=== PATIENT | male | born 1960 | race Two or more races ===

== ENCOUNTER → 2024-12-07 | Day surgery (SDC) | payer MEDICAID ==
[~2024-12-07] VITALS: Ht 167.6 cm; Wt 88.9 kg
[~2024-12-07] MED LIST: ACETAMINOPHEN 1000MG/100ML 100 ML IV ONE; ATEN50TA PO; ATOR40TA70 PO; BUPIVACAINE HCL/PF 0.5% (5MG/ML) 10ML ONE; DEXAMETHASONE 4MG/ML 1ML VIAL ONE; FAMOTIDINE 20MG/2ML VIAL IV ONE; FENTANYL CITRATE/PF 50MCG/ML 2ML VIAL ONE; GABA-1180 PO; HYDRALAZINE 20MG/ML VIAL IV PRN; HYDROMORPHONE HCL/PF 1MG/ML INJ IV PRN; LABETALOL 5MG/ML 4ML INJ IV PRN; LIDOCAINE HCL 1% 10 MG/ML 10ML VIAL ONE; METF-416 PO; OMEP40CA20 PO; ONDANSETRON HCL 4MG/2ML INJ IV PRN; ONDANSETRON HCL 4MG/2ML INJ ONE; PROPOFOL 200MG/20ML VIAL IV ONE; ROCURONIUM BROMIDE 10MG/ML VIAL 5ML IV ONE; SKIN ADHESIVE 0.7 GM EA TOP ONE; SUGAMMADEX SODIUM 200MG/2ML VIAL IV ONE; TRAM50TA3 PO
[2024-12-07] MEDS: SODIUM CHLORIDE 0.9% 1,000 ML IV SCH (07:01)
[2024-12-07] MEDS: FENTANYL CITRATE/PF 50MCG/ML 2ML VIAL IV PRN (10:01)
[2024-12-07 10:13] VITALS: BP 137/88; PULSE 70; RESP 16
== END | disposition home or self-care (01) ==
LOC: OR 05:28
PROVIDERS: ATTEND Surgery
DX: K40.90 Unilateral inguinal hernia, without obstruction or gangrene, not specified as recurrent (principal); I10 Essential (primary) hypertension; E78.5 Hyperlipidemia, unspecified; E11.9 Type 2 diabetes mellitus without complications; Z79.84 Long term (current) use of oral hypoglycemic drugs; Z79.899 Other long term (current) drug therapy; Z98.890 Other specified postprocedural states
CPT/HCPCS: 49505; 82962; J3010; J0665; J1100; J3490 ×2; J2003; J2405; J2704; C1781; J0131